=== PATIENT | female | born 1945 | race Caucasian/White ===

== ENCOUNTER 2022-03-27 16:52 | Emergency (ER) | payer MEDICARE, OTHER ==
--- NOTE | 2022-03-27 17:41 | ED ---
Asthma HPI - General Stated Complaint: YONI Time Seen by Provider: 03/27/22 17:19 Source: EMS Mode of arrival: EMS Limitations: no limitations - History of Present Illness Initial Comments: This patient is 76-year-old woman who presents with complaint that she is having an asthma flare. 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 She states that this was not known to her and she does have ALLERGY to cats. She states that after some time there she noticed she was short of breath, wheezing and having nonproductive cou gh. She states that it did not respond to the Primatene inhaler that she had available to her. She states that the tenant then phoned EMS because she was having difficulty walking due to the shortness of breath. Patient received nebulized treatment from the ambulance personnel and states that she is feeling much better and would like to go home now. She denies fever or chills. No productive cough. No other symptoms. MD Complaint: "asthma attack" -: hour(s) Asthma History: adult onset Severity: moderate Context: pet exposure Associated Symptoms: dry cough Treatments Prior to Arrival: inhaled bronchodilator - Related Data Current Asthma Therapy: inhaled bronchodilator Previous Rx's Medication Instructions Recorded predniSONE 60 mg PO DAILY #30 tab 03/27/22 Allergies Allergy/AdvReac Type Severity Reaction Status Date / Time codeine Allergy Unknown Verified 03/27/22 17:21 Sulfa (Sulfonamide Allergy Unknown Verified 03/27/22 17:21 Antibiotics) Review of Systems ROS Statement: Those systems with pertinent positive or pertinent negative responses have been documented in the HPI. ROS Other: All systems not noted in ROS Statement are negative. Constitutional: Denies: fever, chills Respiratory: Reports: cough, dyspnea, wheezes. Denies: hemoptysis Cardiovascular: Denies: chest pain, palpitations, edema, syncope Gastrointestinal: Denies: abdominal pain, vomiting, diarrhea Genitourinary: Denies: dysuria Musculoskeletal: Denies: back pain Skin: Denies: rash Neurological: Denies: headache, weakness Past Medical History Past Medical History: Asthma History of Any Multi-Drug Resistant Organisms: None Reported Past Surgical History: Adenoidectomy, Appendectomy, Tonsillectomy Past Psychological History: No Psychological Hx Reported Smoking Status: Never smoker Past Alcohol Use History: Rare Past Drug Use History: None Reported General Exam Limitations: no limitations General appearance: alert, in no apparent distress Head exam: Present: atraumatic, normocephalic Eye exam: Present: normal appearance. Absent: scleral icterus, conjunctival injection Neck exam: Present: normal inspection Respiratory exam: Present: wheezes. Absent: respiratory distress, rales, rhonchi, stridor Cardiovascular Exam: Present: regular rate, normal rhythm, normal heart sounds. Absent: systolic murmur, diastolic murmur, rubs, gallop GI/Abdominal exam: Present: soft. Absent: distended, tenderness, guarding, rebound, rigid, mass Extremities exam: Present: normal inspection, normal capillary refill. Absent: pedal edema, calf tenderness Back exam: Present: normal inspection. Absent: CVA tenderness (R), CVA tenderness (L) Neurological exam: Present: alert Skin exam: Present: warm, dry, intact, normal color. Absent: rash Course Vital Signs 03/27/22 17:16 Pulse Rate 95 Respiratory 18 Rate Blood Pressure 168/90 O2 Sat by Pulse 99 Oximetry Disposition Clinical Impression: Asthma attack Disposition: HOME SELF-CARE Condition: Good Instructions (If sedation given, give patient instructions): Asthma (ED) Prescriptions: predniSONE 60 mg PO DAILY #30 tab Is patient prescribed a controlled substance at d/c from ED?: No Referrals: None,Stated [Primary Care Provider] - 1-2 days
[2022-03-27 18:22] VITALS: BP 159/73; PULSE 88; RESP 20; TEMP 97.6
== END 2022-03-27 17:55 | disposition home or self-care (01) ==
LOC: EC 16:52
DX: J45.909 Unspecified asthma, uncomplicated (principal); Z88.2 Allergy status to sulfonamides; Z88.5 Allergy status to narcotic agent
CPT/HCPCS: 99284